=== PATIENT | female | born 1995 | race Caucasian/White ===

== ENCOUNTER 2019-01-08 20:13 | Emergency (ER) | payer OTHER ==
[~2019-01-08] VITALS: Wt 100.9 kg
[~2019-01-08 20:13] MED LIST: DOCU-159 PO; DOCU-29; GLIP5POW2 MC; INSU100V14 SC; METF-849 PO; NPH SQ; PREN1TAB49 PO; SENNA
--- NOTE | 2019-01-09 00:13 | ERD ---
ER Documentation Chief Complaint Chief Complaint vaginal bleeding x 3 weeks, lmp started 3 weeks ago, denies HPI 24-year-old female, with history of type 1 diabetes, LMP 12/23/18, presents to the emergency department, complaining of prolonged menstrual. For 3 weeks. She denies pelvic pain, no abdominal pain, negative test at home. ROS All systems reviewed and are negative except as per history of present illness. Medications Home Meds Active Scripts Ibuprofen* (Motrin*) 600 Mg Tab, 600 MG PO Q8, #15 TAB Prov:ELIECER WELLER MD 01/09/19 Reported Medications Vits W-Ca,Fe,Fa(<1MG) () 1 Tab Tablet, 1 TAB PO DAILY 08/02/12 Insulin Human Nph (Novolin-N) 100 Units/Ml Susp, 0 SQ 07/30/12 Insulin Regular, Human (Humulin R) 100 Units/Ml Vial, 0 SC 07/30/12 Vits W-Ca,Fe,Fa(<1MG) () 1 Tab Tablet, 1 TAB PO 07/30/12 Docusate Sodium* (Docusate Sodium*) 100 Mg Capsule, 100 MG PO BID 07/15/12 Glipizide (Glipizide) 5 Gm Powder, 5 GM MC BID 07/15/12 Metformin* (Glucophage*) 500 Mg Tab, 500 MG PO BID 07/15/12 [Senna] No Conflict Check 07/14/12 Docusate Sodium (Dss) 100 Mg Capsule 07/14/12 [None] No Conflict Check 11/05/09 Allergies Allergies: Coded Allergies: No Known Drug Allergies (Verified Allergy, Unknown, 01/08/19) PMhx/Soc History of Surgery: No Anesthesia Reaction: No Hx Neurological Disorder: No Hx Respiratory Disorders: No Hx Cardiac Disorders: No Hx Psychiatric Problems: No Hx Miscellaneous Medical Probl: No Hx Alcohol Use: No Hx Substance Use: No Hx Tobacco Use: No Smoking Status: Never smoker FmHx Family History: No diabetes, No coronary disease Physical Exam Vitals Vital Signs Date Temp Pulse Resp B/P (MAP) Pulse Ox O2 O2 Flow FiO2 Time Delivery Rate 01/09/19 98.2 90 20 111/65 98 Room Air 02:00 (80) 01/08/19 99.9 120 20 170/84 18 20:44 (112) Physical Exam Const: No acute distress Head: Atraumatic Eyes: Normal Conjunctiva ENT: Normal External Ears, Nose and Mouth. Neck: Full range of motion. No meningismus. Resp: Clear to auscultation bilaterally Cardio: Regular rate and rhythm, no murmurs Abd: Soft, non tender, non distended. Normal bowel sounds Skin: No petechiae or rashes Back: No midline or flank tenderness Ext: No cyanosis, or edema Neur: Awake and alert Psych: Normal Mood and Affect Result Diagram: 01/09/193001/09/1930 Results 24 hrs Laboratory Tests Test 01/09/19 00:31 01/09/19 00:32 01/09/19 00:39 White Blood Count 11.2 10^3/ul Red Blood Count 4.31 10^6/ul Hemoglobin 12.5 g/dl Hematocrit 36.9 % Mean Corpuscular Volume 85.6 fl Mean Corpuscular Hemoglobin 29.0 pg Mean Corpuscular 33.9 g/dl Hemoglobin Concent Red Cell Distribution Width 12.0 % Platelet Count 301 10^3/UL Mean Platelet Volume 8.8 fl Immature Granulocytes % 0.500 % Neutrophils % 47.1 % Lymphocytes % 44.2 % Monocytes % 5.3 % Eosinophils % 2.5 % Basophils % 0.4 % Nucleated Red Blood Cells % 0.0 /100WBC Immature Granulocytes # 0.060 10^3/ul Neutrophils # 5.3 10^3/ul Lymphocytes # 4.9 10^3/ul Monocytes # 0.6 10^3/ul Eosinophils # 0.3 10^3/ul Basophils # 0.0 10^3/ul Nucleated Red Blood Cells # 0.0 10^3/ul Sodium Level 139 mmol/L Potassium Level 3.6 mmol/L Chloride Level 101 mmol/L Carbon Dioxide Level 28 mmol/L Anion Gap 10 Blood Urea Nitrogen 17 mg/dl Creatinine 0.65 mg/dl Est Glomerular Filtrat Rate mL/min > 60 mL/min Glucose Level 80 mg/dl Calcium Level 10.2 mg/dl Bedside Urine pH (LAB) 7.5 Bedside Urine Protein (LAB) Trace Bedside Urine Glucose (UA) Negative Bedside Urine Ketones (LAB) Negative Bedside Urine Blood 3+ Bedside Urine Nitrite (LAB) Negative Bedside Urine Leukocyte Esterase Negative (L POC Beta HCG, Qualitative NEGATIVE Patient: YOLETTE LUCAS : 1995 Age: 23 Sex: F MR #: [id number] DOS: 01/09/19 0011 Ordering MD: ELIECER WELLER MD Location: [facility], [facility]–1983 Room/Bed: PROCEDURE: US Pelvis. CLINICAL INDICATION: Menorrhagia TECHNIQUE: Multiple sonographic images of the pelvis were obtained utilizing a transabdominal and endovaginal technique. The images were reviewed on a PACS workstation. COMPARISON: None. FINDINGS: Transabdominal images: Uterus is normal in size and contour. Uterine dimensions are 9.1 x 4.0 by 3.9 cm. No adnexal masses are grossly evident. There does not appear to be any large volume of free fluid in the pelvis. The urinary bladder is grossly unremarkable. Transvaginal imaging: The myometrium appears unremarkable. The endometrium appears unremarkable with a thickness of 8 mm. The right ovary appears normal and measures 2.6 x 2.4 x 1.7 cm. The left ovary is not identified. There is no visible left adnexal mass. Blood flow is visible in the right ovary. There is no significant free fluid in the pelvis. IMPRESSION: 1. Sonographically unremarkable uterus and right ovary .. 2. Nonvisualization of the left ovary without evidence of left adnexal mass. RPTAT:AAJJ Physician Eunice Date Time Electronically viewed and signed by Physician Eunice on 01/09/2019 01:39 GW/ CC: ELIECER WELLER MD [id number] Procedures/MDM Vital signs stable, Physical exam unremarkable, abdomen soft, nontender. Patient hemodynamically stable. Differential diagnosis include but not limited to: , ovarian cyst, fibroids, endometriosis, malignancy, dysfunctional bleeding, hematologic condition. Low suspicion for PID, no signs of hypovolemic shock. Pertinent Data: test: Negative Labs: CBC: normal, CMP: normal kidney and liver function, normal electrolytes. Lipase: normal Radiology: Ultrasound: Normal Physical examination and clinical presentation consistent most likely with dysfunctional uterine bleeding. During the ED course the patient remained stable, no new complaints. Results and clinical impression discussed with patient who agrees with management. The patient is stable to be treated outpatient and will be discharged home. The patient was instructed to follow up with the primary care provider in the next 48h. If symptoms persist, worsen or new symptoms develop, then patient should return to the ED immediately. Instructions explained and given directly by me to the patient with acknowledgment and demonstrated understanding. Disclaimer: Inadvertent spelling and grammatical errors are likely due to EHR/dictation software use and do not reflect on the overall quality of patient care. Also, please note that the electronic time recorded on this note does not necessarily reflect the actual time of the patient encounter. Departure Diagnosis: Primary Impression: Anovulatory (dysfunctional uterine) bleeding Condition: Stable Additional Instructions: Thank you very much for allowing us to participate in your care. Your health and safety is our top priority at [facility]. Call your primary care doctor TOMORROW for an appointment during the next 2-4 days and bring all the information and medications prescribed. Have prescriptions filled and follow precisely the directions on the label. If the symptoms get worse and your provider is unavailable, return to the Emergency Department immediately. ELIECER WELLER MD Jan 09, 2019 00:13
[2019-01-09] MEDS ORDERED: IBUP-1542 PO (01:46)
[2019-01-09 02:00] VITALS: BP 111/65; PULSE 90; RESP 20
== END 2019-01-09 02:05 | disposition home or self-care (01) ==
LOC: FTE 20:13
DX: N93.8 Other specified abnormal uterine and vaginal bleeding (principal); E11.9 Type 2 diabetes mellitus without complications; Z79.4 Long term (current) use of insulin
CPT/HCPCS: 36415; 76830; 76856; 80048; 81003; 81025; 85025; Z7502